=== PATIENT | female | born 1950 | race Caucasian/White ===

== ENCOUNTER 2023-12-02 07:49 | Outpatient (CLI) | payer OTHER | END 2023-12-02 07:58 | disposition home or self-care (01) | LOC: TOM 07:49 | PROVIDERS: ATTEND Internal Medicine Gastroenterology | DX: K57.92 Diverticulitis of intestine, part unspecified, without perforation or abscess without bleeding (principal); K59.00 Constipation, unspecified; C18.9 Malignant neoplasm of colon, unspecified; R19.5 Other fecal abnormalities ==